=== PATIENT | male | born 1970 | race Caucasian/White ===

== ENCOUNTER 2019-10-11 06:39 | Emergency (ER) | payer SELFPAY ==
[~2019-10-11] VITALS: Ht 188 cm; Wt 124.8 kg
[2019-10-11 06:55] VITALS: BP 143/81
[2019-10-11 07:50] LABS: RAPID INFLUENZA A Negative (Negative); RAPID INFLUENZA B Negative (Negative)
== END 2019-10-11 08:11 | disposition home or self-care (01) ==
LOC: ED 08:00
DX: J18.1 Lobar pneumonia, unspecified organism (principal)
CPT/HCPCS: 71046; 87081; 87400; 87880; 99284